=== PATIENT | male | born 1960 | race Caucasian/White ===

== ENCOUNTER 2020-12-04 05:18 | Inpatient (IN) | payer OTHER ==
[~2020-12-04] VITALS: Ht 165.1 cm; Wt 133.8 kg
[~2020-12-04 05:18] MED LIST changes: -ACETAMINOPHEN 1000 MG/ISO-OSM 100 ML IV ONE; -SODIUM CHLORIDE 0.9% 100 ML ONE; -SUGAMMADEX SODIUM 200 MG/2 ML VIAL IVP ONE; -TRANEXAMIC ACID 1,000 MG/10 ML VIAL ONE; -VANCOMYCIN HCL 1 GM/VIAL ONE
[2020-12-04] MEDS ORDERED: ONDANSETRON HCL 4 MG/2 ML VIAL IVP PRN (06:45)
[2020-12-04] MEDS ORDERED: DiphenhydrAMINE HCL 50 MG/ML VIAL IVP PRN (06:45)
[2020-12-04] MEDS ORDERED: ZOLPIDEM TARTRATE 10 MG TABLET PO PRN (06:45)
[2020-12-04] MEDS ORDERED: BENZOCAINE/MENTHOL LOZENGE PO PRN (06:45)
[2020-12-04] MEDS ORDERED: MAG HYDROX/AL HYDROX/SIMETH 30 ML SUSP UDCUP PO PRN (06:45)
[2020-12-04] MEDS ORDERED: HYDROmorphone 2 MG/ML VIAL IVP PRN (08:00)
[2020-12-04] MEDS: OXYGEN THERAPY IH SCH ×2 (08:00→20:13)
[2020-12-04] MEDS ORDERED: FentaNYL CITRATE PF 100 MCG/2 ML VIAL IVP PRN (08:00)
[2020-12-04] MEDS: ACETAMINOPHEN 1000 MG/ISO-OSM 100 ML IV SCH ×3 (08:00→20:07)
[2020-12-04] MEDS ORDERED: TRANEXAMIC ACID 1,000 MG in DEXTROSE 5%-WATER 50 ML IV ONE (08:30)
[2020-12-04] MEDS: CYCLOBENZAPRINE HCL 10 MG TABLET PO SCH ×3 (09:00→20:13)
[2020-12-04] MEDS: DOCUSATE SODIUM 100 MG CAPSULE PO SCH ×2 (09:00→20:08)
[2020-12-04 10:03] VITALS: BP 127/72
[2020-12-04] MEDS ORDERED: LIDOCAINE/PF 2% 5 ML VIAL IM ONE (12:00)
[2020-12-04] MEDS ORDERED: NEOSTIGMINE METHYLSULFATE 1 MG/ML 10 ML VIAL IVP ONE (12:00)
[2020-12-04] MEDS ORDERED: KETAMINE HCL 50 MG/ML 10 ML VIAL IVP ONE (12:00)
[2020-12-04] MEDS ORDERED: ONDANSETRON HCL 4 MG/2 ML VIAL IVP ONE (12:00)
[2020-12-04] MEDS ORDERED: FentaNYL CITRATE PF 100 MCG/2 ML VIAL IVP ONE (12:00)
[2020-12-04] MEDS ORDERED: MIDAZOLAM HCL 2 MG/2 ML VIAL IVP ONE (12:00)
[2020-12-04] MEDS ORDERED: 0.9% SODIUM CHLORIDE 10 ML VIAL IVP ONE (12:00)
[2020-12-04] MEDS ORDERED: DEXAMETHASONE SOD PHOS 4 MG/ML VIAL IVP ONE (12:00)
[2020-12-04] MEDS ORDERED: ROCURONIUM BROMIDE 10 MG/ML 5 ML VIAL IVP ONE (12:00)
[2020-12-04] MEDS ORDERED: PROPOFOL 1% 20 ML VIAL IVP ONE (12:00)
[2020-12-04] MEDS ORDERED: METOCLOPRAMIDE HCL 5 MG/ML 2 ML VIAL IVP ONE (12:00)
[2020-12-04] MEDS: HYDROmorphone 2 MG/ML VIAL IVP PRN ×2 (13:35→18:03)
[2020-12-04] MEDS ORDERED: SODIUM CHLORIDE 0.9% 250 ML IV ONE ×2 (14:10→16:27)
[2020-12-04 15:32] VITALS: BP 105/69
[2020-12-04 20:25] VITALS: BP 110/69
[2020-12-05 00:02] VITALS: BP 101/67
[2020-12-05] MEDS: ACETAMINOPHEN 1000 MG/ISO-OSM 100 ML IV SCH (02:06)
[2020-12-05] MEDS ORDERED: SODIUM CHLORIDE 0.9% 250 ML IV ONE (02:42)
[2020-12-05 03:55] VITALS: BP 106/63
[2020-12-05 04:15] VITALS: BP 100/60
[2020-12-05 08:00] VITALS: BP_SYST 100; BP_SYST 113; BP_DIAS 62; BP_DIAS 76
[2020-12-05] MEDS: OXYGEN THERAPY IH SCH (08:00)
[2020-12-05] MEDS: DOCUSATE SODIUM 100 MG CAPSULE PO SCH (08:07)
[2020-12-05] MEDS: CYCLOBENZAPRINE HCL 10 MG TABLET PO SCH ×2 (08:07→15:51)
[2020-12-05 16:34] VITALS: BP 126/84
== END 2020-12-05 17:15 | disposition home or self-care (01) | DRG 473 ==
LOC: 6N 05:18
PROVIDERS: ADMIT Orthopaedic Surgery Orthopaedic Surgery of the Spine; ATTEND Orthopaedic Surgery Orthopaedic Surgery of the Spine
PROC: 0RB30ZZ Excision of Cervical Vertebral Disc, Open Approach (ICD-10-PCS; 2020-12-04)
PROC: 01N10ZZ Release Cervical Nerve, Open Approach (ICD-10-PCS; 2020-12-04)
PROC: 0RG1070 Fusion of Cervical Vertebral Joint with Autologous Tissue Substitute, Anterior Approach, Anterior Column, Open Approach (ICD-10-PCS; principal; 2020-12-04 07:00)
DX: M50.223 Other cervical disc displacement at C6-C7 level (principal); M48.02 Spinal stenosis, cervical region
CPT/HCPCS: 97116; 97161; 97165; 97535; A9575; J0131; J0690; J1100; J1170; J2250; J2405; J2704; J2765; J3010; J3490; J7050; J7060

== ENCOUNTER → 2020-12-04 | Day surgery (SDC) | payer OTHER ==
[2020-12-03 13:43] LABS: COVID AG,FIA SOURCE NASOPHARYNGEAL
[~2020-12-04] MED LIST: ACET-2247 PO; ACETAMINOPHEN 1000 MG/ISO-OSM 100 ML IV ONE; CeFAZolin 2 GM/DEXTROSE 50 ML IV ONE; DULO20CA27 PO; PREG150C46 PO; RINGERS SOLUTION,LACTATED 1,000 ML IV ONE; SODIUM CHLORIDE 0.9% 100 ML ONE; SUGAMMADEX SODIUM 200 MG/2 ML VIAL IVP ONE; TERA2CAP10 PO; TOPI25 PO; TRANEXAMIC ACID 1,000 MG/10 ML VIAL ONE; VANCOMYCIN HCL 1 GM/VIAL ONE
== END | disposition home or self-care (01) ==
LOC: SURGERY 05:00
PROVIDERS: ATTEND Orthopaedic Surgery Orthopaedic Surgery of the Spine
DX: M54.2 Cervicalgia (principal); Z53.8 Procedure and treatment not carried out for other reasons; M19.90 Unspecified osteoarthritis, unspecified site; Z87.01 Personal history of pneumonia (recurrent)
CPT/HCPCS: 87426; A9575; C9803; J0131; J0690; J3370; J3490; J7050; J7120

== ENCOUNTER 2020-12-06 21:33 | Emergency (ER) | payer OTHER ==
[~2020-12-06] VITALS: Ht 165.1 cm; Wt 128.6 kg
[~2020-12-06 21:33] MED LIST changes: -CeFAZolin 2 GM/DEXTROSE 50 ML IV ONE; -RINGERS SOLUTION,LACTATED 1,000 ML IV ONE
[2020-12-06 23:15] VITALS: BP 126/86
== END 2020-12-07 00:29 | disposition home or self-care (01) ==
LOC: EMS 21:33
DX: T81.31XA Disruption of external operation (surgical) wound, not elsewhere classified, initial encounter (principal); Y83.8 Other surgical procedures as the cause of abnormal reaction of the patient, or of later complication, without mention of misadventure at the time of the procedure; Y82.8 Other medical devices associated with adverse incidents
CPT/HCPCS: 12020; 99283; 71045-TC